=== PATIENT | male | born 1960 | race Caucasian/White ===

== ENCOUNTER → 2018-12-29 | Day surgery (SDC) | payer OTHER ==
--- NOTE | 2018-12-10 10:37 | Diagnostic Imaging Report ---
EXAMINATION: CHEST 2 VIEWS INDICATION: Pre-admit. COMPARISON: None FINDINGS: TUBES and LINES: None. LUNGS: Lungs are well inflated. Patchy opacities in the left lower lung. No evidence of pulmonary edema. PLEURA: There is a moderate left pleural effusion. No evidence of pneumothorax. HEART AND MEDIASTINUM: The cardiomediastinal silhouette is unremarkable. BONES AND SOFT TISSUES: No acute osseous abnormality. UPPER ABDOMEN: No free air under the diaphragm. IMPRESSION: Moderate left pleural effusion with patchy left lower lung opacities, likely atelectasis. Signed by: Dr. Traci Vernon MD on 12/10/2018 10:34 AM
[~2018-12-29] MED LIST: BUPIVACAINE 0.5%/EPI 30 ML SDV INJ ONE; CEFAZOLIN SOD 2 GM/D5W 50ML 50 ML IV ONE; DEXAMETHASONE SOD PHOS INJ 4 MG/ML VIAL ONE; FENTANYL CITRATE/PF 100MCG/2 ML INJ ONE; GLUCOSAMINE1000 MG PO; KETOROLAC TROMETHAMINE 30 MG/ML VIAL ONE; LIDOCAINE HCL 2% LOCAL INJ 5 ML SDV VIAL INJ ONE; MIDAZOLAM HCL 2 MG/2 ML VIAL ONE; MULTI-VITAMIN1 EACH PO; ONDANSETRON HCL INJ 2MG/ML 2ML 2 MG/ML VIAL ONE; POTASSIUM PO; PROPOFOL IV EMULSION 10 MG/ML 20 ML VIAL ONE; SEVOFLURANE INHAL SOLN 250 ML PEN BTL ONE; TYLENOL ARTHRITIS PO; VIT C PO
--- OUTSIDE RECORDS SUMMARY | 2018-12-29 05:34 | XMS REPORT | Encounter Summary ---
Author Organization Unknown Address [address] [place] [address] Phone [phone] Care Team Providers Care Adjuster Arbitrator Name Role Phone Dr. Dayne Guerra 3 [phone] Morgan Ocasio MD 130 [phone] Reason for Visit swelling/edema Instructions 1. Edema US, echocardiogram - PLEASE CALL PATIENT TO SCHEDULE APPT. CMP, serum or plasma TSH, serum or plasma CBC w/ auto diff Lasix 20 mg tablet 2. Influenza vaccination declined 3. Body mass index 25-29 - overweight learning about healthy weight Discussion Note: None recorded. Plan of Care Reminders Provider Appointments Return to Office on or around 12/27/2018 Dayne Finney MD Lab CMP, Serum or Plasma 12/13/2018 [facility] TSH, Serum or Plasma 12/13/2018 [facility] CBC W/ Auto Diff 12/13/2018 [facility] Referral None recorded. Procedures None recorded. Surgeries None recorded. Imaging US, Echocardiogram 12/13/2018 [facility] Medications Name Start Date Glucosamine QD Lasix 20 mg tablet Take 1 tablet every other day by oral route as directed for 30 days. multivitamin QD naproxen 500 mg tablet Take 1 tablet twice a day by oral route. potassium QD Vitamin B12 QD Vitamin C QD Medications Administered None recorded. Vitals Height Weight BMI Blood Pressure 5 ft 10 in 196 lbs 28.1 kg/m2 120/70 mm[Hg] Lab Results None recorded. Allergies Code Code System Name Reaction Severity Status Onset NKDA Problems Name Status Onset Date Source Tobacco User Active 12/02/2017 Elevated Blood-pressure Reading without Diagnosis of Hypertension Active 12/02/2017 Procedures Date Name Performed by 12/13/2018 US, Echocardiogram [facility] [address] [place] [address] (Work Place) Vaccine List Vaccine Type Tdap 09/14/2013 Social History Smoking Status Smoker, Current Status Unknown (1 PPD) Past Encounters 12/13/2018 Edema; Influenza Vaccination Declined; Body Mass Index 25-29 - Overweight Dayne Finney MD: [address] [place] [address], Ph. History of Present Illness Note:Complaining of swelling in hands and feet on and off since a few months ago, but worse since 1 week ago. Denies sob, chest pain, lightheadedness. EKG done at the hospital 3 days ago was wnl (preoperative evaluation for a knee surgery). Review of Systems Comprehensive General Adult ROS Reported By: Patient Constitutional: Constitutional: no fever Eyes: Eyes: no vision change Cardiovascular: Cardiovascular: no chest pain, no palpitations, no lightheadedness Respiratory: Respiratory: no cough, no wheezing, no shortness of breath Gastrointestinal: Gastrointestinal: no abdominal pain, no nausea, no vomiting, no constipation, no diarrhea Musculoskeletal: Musculoskeletal: swelling in the extremities Neurologic: Neurologic: no loss of consciousness, no headaches Physical Exam General Adult Exam (male) Reported By: Patient Constitutional: General Appearance: healthy-appearing, overweight. Level of Distress: NAD. Ambulation: ambulating normally Psychiatric: Insight: good judgement. Mental Status: active and alert, normal mood, normal affect. Orientation: to time, to place, to person. Memory: recent memory normal, remote memory normal Eyes: Lids and Conjunctivae: non-injected, no discharge ENMT: Oropharynx: moist mucous membranes Neck: Neck: supple, trachea midline. Thyroid: no enlargement, non-tender Lungs: Auscultation: breath sounds normal Cardiovascular: Heart Auscultation: RRR, normal S1, normal S2, no murmurs. Neck vessels: no carotid bruits. Pulses including femoral / pedal: normal throughout Abdomen: Inspection and Palpation: soft, non-distended, no tenderness, no guarding Musculoskeletal:: Motor Strength and Tone: normal, normal tone. Joints, Bones, and Muscles: normal movement of all extremities. Extremities: edema Neurologic: Gait and Station: normal gait
--- OUTSIDE RECORDS SUMMARY | 2018-12-29 05:34 | XMS REPORT | Encounter Summary ---
Author Organization Unknown Address [address] [place] [address] Phone [phone] Care Team Providers Care Slat Basket Top Maker Name Role Phone Dr. Dayne Guerra 3 [phone] Morgan Ocasio MD 130 [phone] Reason for Visit lab follow-up Instructions 1. Pleural effusion 2. Anemia iron + TIBC + ferritin, serum fecal occult blood, stool 3. Leukocytosis 4. Tear of meniscus of knee 5. Thrombocytosis 6. Hypothyroidism levothyroxine 25 mcg tablet 7. Screening for disorder hepatitis C virus RNA, quant, PCR, serum or plasma 8. Body mass index 25-29 - overweight learning about healthy weight 9. Nicotine dependence stopping smoking: care instructions Discussion Note: None recorded. Plan of Care Reminders Provider Appointments Return to Office on or around 12/30/2018 Dayne Finney MD Lab Hepatitis C Virus RNA, Quant, PCR, Serum or Plasma 12/16/2018 [facility] Iron + TIBC + Ferritin, Serum 12/16/2018 [facility] Fecal Occult Blood, Stool 12/16/2018 [facility] Referral None recorded. Procedures None recorded. Surgeries None recorded. Imaging None recorded. Medications Name Start Date furosemide 20 mg tablet Take 1 tablet every other day by oral route as directed for 30 days. Glucosamine QD levothyroxine 25 mcg tablet Take 1 tablet every day by oral route as directed for 30 days. multivitamin QD potassium QD Tylenol Arthritis Pain 2 tabs twice a day Vitamin B12 QD Vitamin C QD Medications Administered None recorded. Vitals Height Weight BMI Blood Pressure 5 ft 10 in 198 lbs 28.4 kg/m2 136/74 mm[Hg] Lab Results Date Name Specimen Result Interpretation Description Value Range Status Address 12/13/2018 CBC W/ Auto Diff High Wbc 12.11 x10*3/L 4.23-9.07 x10*3/L Final [facility]: [address] [place] [address] Low Rbc 4.29 10*12/L 4.63-6.08 10*12/L Final [facility]: [address] [place] Low Hemoglobin 11.50 g/dL 13.70-17.50 g/dL Final [facility]: [address] [place] Low Hematocrit 38.0 % 40.1-51.0 % Final [facility]: [address] [place] Mcv 88.6 fL 80.0-100.0 fL Final [facility]: [address] [place] Mch 26.8 pg 25.7-32.2 pg Final [facility]: [address] [place] Low Mchc 30.3 g/dL 32.3-36.5 g/dL Final [facility]: [address] [facility] RDW-SD 46.3 fL 35.1-43.9 fL Final [facility]: [address] [facility] Platelet Count 470.0 k/uL 163.0-337.0 k/uL Final [facility]: [address] [place] Mpv 10.0 fL 7.5-11.5 fL Final [facility]: [address] [place] High Neut% 80.4 % 34.0-67.9 % Final [facility]: [address] [place] Low Lymph% 9.9 % 21.8-53.1 % Final [facility]: [address] [place] Mon% 8.6 % 5.3-12.2 % Final [facility]: [address] [place] Eos% 0.9 % 0.8-7.0 % Final [facility]: [address] [place] Baso% 0.2 % 0.2-1.2 % Final [facility]: [address] [place] High Neut# 9.7 x10*3/L 1.8-5.4 x10*3/L Final [facility]: [address] [place] Low Lymph# 1.2 x10*3/L 1.3-3.6 x10*3/L Final [facility]: [address] [place] High Mon# 1.0 x10*3/L 0.3-0.8 x10*3/L Final [facility]: [address], [place] Eos# 0.11 x10*3/L 0.04-0.54 x10*3/L Final [facility]: [address] [place] Baso# 0.03 x10*3/L 0.01-0.08 x10*3/L Final [facility]: [address] [place] 12/13/2018 CMP, Serum or Plasma Alt 15 U/L 0-55 U/L Final [facility]: [address] Ast 11 U/L 5-34 U/L Final [facility]: [address] [place] [address] Bun 15.5 mg/dL 8.4-25.7 mg/dL Final [facility]: [address] Alk Phos 76 unit/L 40-150 unit/L Final [facility]: [address] Glucose 98 mg/dL 70-99 mg/dL Final [facility]: [address] [place] [address] Low Albumin 3.0 g/dL 3.5-5.0 g/dL Final [facility]: [address] [place] [address] Creatinine 0.75 mg/dL 0.72-1.25 mg/dL Final [facility]: [address] [place] [address] eGFR Non- >60 mL/min/1.73m2 Final [facility]: [address] Total Bilirubin 0.3 mg/dL 0.2-1.2 mg/dL Final [facility]: [address] eGFR - >60 mL/min/1.73m2 Final [facility]: [address] [facility] Sodium 142 mEq/L 136-145 mEq/L Final [facility]: [address] Potassium 4.7 mEq/L 3.5-5.1 mEq/L Final [facility]: [address] Chloride 105 mmol/L 98-107 mmol/L Final [facility]: [address] [place] [address], [place] Total Protein 7.5 g/dL 6.4-8.3 g/dL Final [facility]: [address] [place] [address], [place] Calcium 9.3 mg/dL 8.4-10.2 mg/dL Final [facility]: [address] [place] [address], [place] Co2 27.5 mmol/L 22.0-29.0 mmol/L Final [facility]: [address] Anion Gap 10 calc Final [facility]: [address] [place] [address], [place] 12/13/2018 TSH, Serum or Plasma High Tsh 6.435 uIU/mL 0.350-4.940 uIU/mL Final [facility]: [address] Allergies Code Code System Name Reaction Severity Status Onset NKDA Problems Name Status Onset Date Source Tobacco User Active 12/02/2017 Elevated Blood-pressure Reading without Diagnosis of Hypertension Active 12/02/2017 Procedures Date Name Performed by 12/13/2018 US, Echocardiogram [facility] [place] [address] [place] [address] (Work Place) Vaccine List Vaccine Type Tdap 09/14/2013 Social History Smoking Status Heavy Tobacco Smoker (1 PPD) Past Encounters 12/16/2018 Pleural Effusion; Anemia; Leukocytosis; Tear of Meniscus of Knee; Thrombocytosis; Hypothyroidism; Screening for Disorder; Body Mass Index 25-29 - Overweight; Nicotine Dependence Dayne Finney MD: [address] [place] [address], Ph. 12/13/2018 Edema; Influenza Vaccination Declined; Body Mass Index 25-29 - Overweight Dayne Finney MD: [address] [place] [address], Ph. History of Present Illness Note:Coming to discuss labs, CXR results and clearance for knee surgery. Review of Systems Comprehensive General Adult ROS [...] midline. Thyroid: no enlargement, non-tender Lungs: Auscultation: decreased breath sounds Cardiovascular: Heart Auscultation: RRR, normal S1, normal S2, no murmurs Musculoskeletal:: Motor Strength and Tone: normal, normal tone. Extremities: edema Neurologic: Gait and Station: normal gait
--- OUTSIDE RECORDS SUMMARY | 2018-12-29 05:34 | XMS REPORT | Encounter Summary ---
Author Organization Unknown Address [address] [place] [address] Phone [phone] Care Team Providers Care Arboriculture Instructor Name Role Phone Dr. Dayne Guerra 3 [phone] Morgan Ocasio MD 130 [phone] Reason for Visit swelling/edema Instructions 1. Edema [...] MD Lab CMP, Serum or Plasma 12/13/2018 [facility] TSH, Serum or Plasma 12/13/2018 [facility] CBC W/ Auto Diff 12/13/2018 [facility] Referral None recorded. Procedures None recorded. Surgeries None recorded. Imaging US, Echocardiogram 12/13/2018 [facility] Diagnos[facility] Imaging [facility] Medications Name Start Date Glucosamine QD Lasix [...] Date Name Performed by 12/13/2018 US, Echocardiogram [facility] Diagn[facility] Imaging [facility] [address] [place] [address] (Work Place) Vaccine List Vaccine Type Tdap 09/14/2013 Social History Smoking Status Smoker, Current Status Unknown (1 PPD) Past Encounters 12/13/2018 Edema; Influenza Vaccination Declined; Body Mass Index 25-29 - Overweight Dayne Finney MD: [address] [place] [address], Ph. History of Present Illness Note:Complaining of swelling in hands and feet on and off since a few months ago, but worse since 1 week ago. Denies sob, chest pain, lightheadedness. EKG done at the hospital 3 days ago was wnl (preoperative evaluation for a knee surgery). Review of Systems None recorded. Physical Exam General Adult Exam (male) Reported [...]
--- OUTSIDE RECORDS SUMMARY | 2018-12-29 05:34 | XMS REPORT ---
Author Author [facility] Address Unknown Phone Unavailable Care Team Providers Care Grounding Engineer Name Role Phone ARAM SORENSEN Unavailable Unavailable Problems This patient has no known problems. Allergies, Adverse Reactions, Alerts This patient has no known allergies or adverse reactions. Medications This patient has no known medications. Results Test Description Test Time Test Comments Text Results Atomic Results Result Comments CHEST 2 VIEWS 2018-12-10 10:27:00 [place] [id number] [place] [id number] Patient Name: TRAVIS MARTINEZ MR #: [id number] : 1960 Age/Sex: 58/M Req #: [id number] Adm Physician: Ordered by: ARAM SORENSEN MD Report #: [id number] Location: OR Room/Bed: Procedure: [id number] DX/CHEST 2 VIEWS Exam Date: 12/10/18 Exam Time: 0940 REPORT STATUS: Signed EXAMINATION: CHEST 2 VIEWS INDICATION: Pre-admit. COMPARISON: None FINDINGS: TUBES and LINES: None. LUNGS: Lungs are well inflated. Patchy opacities in the left lower lung. No evidence of pulmonary edema. PLEURA: There is a moderate left pleural effusion. No evidence of pneumothorax. HEART AND MEDIASTINUM: The cardiomediastinal silhouette is unremarkable. BONES AND SOFT TISSUES: No acute osseous abnormality. UPPER ABDOMEN: No free air under the diaphragm. IMPRESSION: Moderate left pleural effusion with patchy left lower lung opacities, likely atelectasis. Signed by: Dr. Greta Wilson MD on 12/10/2018 10:34 AM Dictated By: GRETA WILSON MD 1034 Transcribed By: JAQUELINE on 12/10/18 1034 COPY TO: ARAM SORENSEN MD
--- OUTSIDE RECORDS SUMMARY | 2018-12-29 05:34 | XMS REPORT ---
Author Organization Unknown Address [address] [place] [address] Phone [phone] Care Team Providers Care Marine Insurance Claim Examiner Name Role Phone Dayne Benoit Unavailable Unavailable Allergies Code Code System Name Reaction Severity Status Onset NKDA Medications Name Status Start Date Stop Date amoxicillin 875 mg-potassium clavulanate 125 mg tablet Completed 12/01/2017 Problems Name Status Onset Date Source Tobacco User Active 12/02/2017 Elevated Blood-pressure Reading without Diagnosis of Hypertension Active 12/02/2017 Procedures Notes: Patient indicated no previous surgeries on (12/01/2017) Lab Results None recorded. Past Encounters 12/01/2017 Elevated Blood-pressure Reading without Diagnosis of Hypertension; Tobacco User Carley Tran MD: [address] [place] [address], Ph. Social History Smoking Status Smoker, Current Status Unknown (1 PPD) Vaccine List Vaccine Type Tdap 09/14/2013 Plan of Care Reminders Provider Appointments None recorded. Lab None recorded. Referral None recorded. Procedures None recorded. Surgeries None recorded. Imaging None recorded. Vitals Height Weight BMI Blood Pressure 5 ft 10 in 219 lbs 31.4 kg/m2 118/78 mm[Hg]
[2018-12-29 09:30] VITALS: BP 132/77
--- NOTE | 2018-12-30 18:47 | Operative Report ---
DATE OF PROCEDURE: 12/29/2018 SURGEON: Morgan Ocasio MD PREOPERATIVE DIAGNOSES: Right knee medial meniscus tear, right knee degenerative joint disease. POSTOPERATIVE DIAGNOSES: Right knee medial meniscus tear, right knee lateral meniscus tear, right knee degenerative joint disease, right knee multiple intra-articular loose bodies, right knee symptomatic medial shelf plica. OPERATION/PROCEDURE PERFORMED: The patient underwent a right knee exam under anesthesia, right knee arthroscopy, right knee partial medial meniscectomy, right knee partial lateral meniscectomy, right knee removal of multiple intra-articular loose bodies, right knee chondroplasty of the patella, the trochlea, the medial femoral condyle, the medial tibial plateau, the lateral femoral condyle, and lateral tibial plateau, right knee resection of a medial shelf plica. INFANT CAREGIVER: Melissa Zurita. ANESTHESIA: General endotracheal intubation anesthesia. IV FLUIDS: Per the anesthesia record. BRIEF DISCUSSION OF THE PATIENT'S OPERATIVE PROCEDURE: Mr. Martinez was taken to the operating room, placed in the supine position on the operating table. Following induction of general anesthesia as well as endotracheal intubation, the patient's right lower extremity was examined under anesthesia. He was found to have a mild effusion within the knee joint, but otherwise ligamentously stable knee. The patient's lower extremity was prepped and draped in standard surgical fashion. A 2-port technique was used to provide this patient arthroscopic evaluation of the knee joint. Examination of suprapatellar pouch, medial and lateral gutters found no evidence of loose bodies. There was, however, evidence of chondromalacia of the patella and trochlear surfaces. The scope was advanced into the medial compartment. Examination of the medial compartment demonstrated a torn medial meniscus. There was also chondromalacia of the articulating surfaces. A combination of biting forceps and motorized shaver was used to resect the torn portion of the meniscus. Chondroplasties of the medial femoral condyle and medial tibial plateau were performed at this time. The scope was then advanced into the intercondylar notch and the anterior cruciate ligament was identified and found to be intact. Scope was then advanced into the lateral compartment and a torn posterior horn of the lateral meniscus was encountered. There was also chondromalacia of the articulating surfaces. A combination of biting forceps and motorized shaver was used to resect the torn portion of the meniscus. Chondroplasties of the lateral femoral condyle and lateral tibial plateau were performed at this time. The scope was placed within the knee joint atraumatically. Examination of the patellofemoral joint demonstrated chondromalacia of the articulating surfaces. There were multiple intra-articular loose bodies floating within the suprapatellar pouch. These were removed using a shaver. The scope was advanced into the medial compartment and examination of the medial compartment demonstrated a torn medial meniscus. There was also chondromalacia of the articulating surfaces. There was a large cartilaginous intra-articular loose body in the medial compartment. This was removed using a grasper. A combination of biting forceps and a motorized shaver was used to resect the torn portion of meniscus. Chondroplasties of the medial femoral condyle and medial tibial plateau were performed at this time. Scope was then advanced into the intercondylar notch and the anterior cruciate ligament was identified and found to be intact. The scope was advanced into the lateral compartment. There was a tear of the posterior horn of the lateral meniscus. There was also chondromalacia of the articulating surfaces. A shaver was used to resect the torn portion of the meniscus. Chondroplasties of the lateral femoral condyle and lateral tibial plateau were performed at this time. Scope was then placed in the suprapatellar pouch and a medial shelf plica was found to be interdigitating between the patella and the trochlea. The plica was resected. There was also chondromalacia of the articulating surfaces. Chondroplasties of the patella and trochlea were performed at this time. The knee was inflated with sterile normal saline. The portal sites were closed using 4-0 nylon suture. The portal sites as well as the knee itself were injected with 0.5% Marcaine with epinephrine. Sterile dressings were applied. The patient was then awakened and taken to the Postanesthesia Care Unit in stable condition. MD AUSTIN Hedrick/LEONA /[id number]
== END | disposition home or self-care (01) ==
LOC: OR 05:30
PROVIDERS: ATTEND Specialist
DX: S83.281A Other tear of lateral meniscus, current injury, right knee, initial encounter (principal); S83.241A Other tear of medial meniscus, current injury, right knee, initial encounter; M17.11 Unilateral primary osteoarthritis, right knee; M67.51 Plica syndrome, right knee; Z01.810 Encounter for preprocedural cardiovascular examination; Z01.811 Encounter for preprocedural respiratory examination
CPT/HCPCS: 29874; 29881; 71046; 93005; J0690; J1100; J1885; J2001; J2250; J2405; J2704

== ENCOUNTER → 2018-12-31 | Outpatient (CLI) | payer OTHER ==
[~2018-12-31] MED LIST changes: -BUPIVACAINE 0.5%/EPI 30 ML SDV INJ ONE; -CEFAZOLIN SOD 2 GM/D5W 50ML 50 ML IV ONE; -DEXAMETHASONE SOD PHOS INJ 4 MG/ML VIAL ONE; -FENTANYL CITRATE/PF 100MCG/2 ML INJ ONE; -KETOROLAC TROMETHAMINE 30 MG/ML VIAL ONE; -LIDOCAINE HCL 2% LOCAL INJ 5 ML SDV VIAL INJ ONE; -MIDAZOLAM HCL 2 MG/2 ML VIAL ONE; -ONDANSETRON HCL INJ 2MG/ML 2ML 2 MG/ML VIAL ONE; -PROPOFOL IV EMULSION 10 MG/ML 20 ML VIAL ONE; -SEVOFLURANE INHAL SOLN 250 ML PEN BTL ONE
--- NOTE | 2018-12-31 14:16 | Diagnostic Imaging Report ---
Examination: Single AP view of the chest. COMPARISON: Chest radiograph 12/10/2018 INDICATION: Status post left thoracentesis DISCUSSION: See impression IMPRESSION: Interval left thoracentesis with interval evacuation of the majority of the large left pleural effusion. Small residual effusion persists. No pneumothorax. Right lung remains clear. Stable findings of COPD. Healed left-sided rib fracture deformities. Signed by: Dr. Anmol Khoury M.D. on 12/31/2018 2:13 PM
--- NOTE | 2018-12-31 14:35 | Diagnostic Imaging Report ---
Date and Time: 12/31/2018 Procedure: Ultrasound-guided left thoracentesis paper wrapping machine operator: Dr. Khoury Pre-operative diagnosis: Left pleural effusion Post-operative diagnosis: Left pleural effusion Conscious Sedation: None The patient's heart rate and pulse oximetry were continuously monitored by the interventional radiology nurse. Blood pressure was monitored at 5 minute intervals. Additional Medications: Lidocaine 1% for local anesthesia Fluoroscopy time: None Estimated blood loss: Minimal Blood products administered: None Specimens: 1600 cc straw-colored fluid submitted to the laboratory. Implants: None Condition at completion: Stable Disposition: Discharged home Indications: No immediate DISCUSSION: Informed consent was obtained and documented in the medical record after discussion of risks and benefits. The patient was placed in the sitting position on the sonographic table. Preliminary sonographic evaluation of the left posterior chest wall confirmed a moderate pleural effusion. A suitable percutaneous approach was identified and the overlying skin was prepped and draped in the standard sterile fashion. 1% lidocaine was infiltrated into the skin and subcutaneous tissues for local anesthesia. Then under continuous sonographic guidance, a 5 Irish Yueh needle catheter was advanced into the pleural space with return of straw-colored fluid. The catheter was advanced off the needle and connected to vacuum bottle with subsequent evacuation of 1600 cc straw-colored fluid. The catheter was removed and a sterile, occlusive dressing was applied. The patient tolerated the procedure well without immediate complication. FINDINGS: Moderate left pleural effusion. IMPRESSION: Successful ultrasound-guided left thoracentesis with evacuation of 1600 cc straw-colored fluid. Specimen was submitted for laboratory analysis as requested by the referring clinical team. Signed by: Dr. Anmol Khoury M.D. on 12/31/2018 2:31 PM
[2018-12-31 16:54] LABS: BODY FLUID APPEARANCE CLOUDY; BODY FLUID COLOR YELLOW; BODY FLUID TYPE PLEURAL
[2018-12-31 16:56] LABS: RBC,BODY FLUID 14 cells/uL; WBC,BODY FLUID 935 cells/uL
[2018-12-31 19:35] LABS: EOSINOPHILS,BODY FLUID 5 %; LYMPHOCYTES,BODY FLUID 28 %; MONO/MACROPHG,BODY FLUID 9 %; NEUTROPHILS,BODY FLUID 58 %
== END ==
LOC: US 12:15
PROVIDERS: ATTEND Internal Medicine Critical Care Medicine
DX: J90 Pleural effusion, not elsewhere classified (principal); J98.11 Atelectasis
CPT/HCPCS: 32555; 36415; 71045; 83615; 84157; 87070; 87205; 88112; 88305; 89051

== ENCOUNTER → 2019-08-24 | Day surgery (SDC) | payer OTHER ==
[~2019-08-24] MED LIST changes: +ACETAMINOPHEN 1000 MG/100 ML IV ONE; +ALBUTEROL SULF 0.083% NEB SOLN 3 ML NEB ONE; +ALBUTEROL SULFATE HFA 8GM INHALATION AEROSOL INH ONE; +BUPIVACAINE 0.5%/EPI 30 ML SDV INJ ONE; +CEFAZOLIN SOD 1 GM/NS 50ML 100 ML IV ONE; +DEXAMETHASONE SOD PHOS INJ 4 MG/ML VIAL ONE; +EPINEPHRINE 1 MG/ML 30ML VIAL ONE; +FENTANYL CITRATE/PF 100MCG/2 ML INJ ONE; +GLYCOPYRROLATE INJ 0.2 MG/ML VIAL ONE; +LEVOTHYROXINE50 MCG PO; +LIDOCAINE HCL 2% LOCAL INJ 5 ML SDV VIAL INJ ONE; +MIDAZOLAM HCL 2 MG/2 ML VIAL ONE; +NAPROXEN250 MG PO; +NEOSTIGMINE 1 MG/ML 10ML VIAL ONE; +ONDANSETRON HCL INJ 2MG/ML 2ML 2 MG/ML VIAL ONE; +PROPOFOL IV EMULSION 10 MG/ML 20 ML VIAL ONE; +ROCURONIUM BROMIDE 10 MG/ML 5ML VIAL ONE; +SEVOFLURANE INHAL SOLN 250 ML PEN BTL ONE
[2019-08-24 12:05] VITALS: BP 108/78
--- NOTE | 2019-08-26 17:42 | Operative Report ---
DATE OF PROCEDURE: 08/24/2019 SURGEON: Morgan Ocasio MD PREOPERATIVE DIAGNOSIS: Left shoulder rotator cuff tear. POSTOPERATIVE DIAGNOSES: Left shoulder rotator cuff tear, left shoulder synovitis. OPERATIONS AND PROCEDURES PERFORMED: The patient underwent left shoulder examination under anesthesia, left shoulder arthroscopy, left shoulder arthroscopic debridement of synovitis, left shoulder arthroscopic rotator cuff reconstruction and left shoulder arthroscopic subacromial decompression and acromioplasty. SIGNAL MECHANIC: GREGOR Blanton. ANESTHESIA: General endotracheal intubation anesthesia. IV FLUIDS: Per the anesthesia record. BRIEF DESCRIPTION OF THE PATIENT'S OPERATIVE PROCEDURE: Mr. Martinez was taken to the operating room and placed in the supine position on the operating table. Following induction of general anesthesia as well as endotracheal intubation, the patient's left upper extremity was examined under anesthesia. He was found to have full passive range of motion of the shoulder joint. There was no evidence of instability. The patient's shoulder was prepped and draped in standard surgical fashion. Standard posterolateral and anterior port were created without difficulty. The scope was placed within the shoulder joint atraumatically. Examination of the glenohumeral articulation demonstrated no significant evidence of chondromalacia. There were no loose bodies in the joint. The long head of the biceps was found to be contained within the shoulder joint and in good condition. A probe was placed in the shoulder joint, the labrum was found to be intact. Examination of the rotator cuff tissue demonstrated a large full-thickness rotator cuff tear. The rotator cuff injury was debrided arthroscopically. The insertion site was also debrided to a bleeding bony bed. Synovitis was debrided at this time. The scope was then placed in subacromial space and significant bursal inflammation was encountered. A lateral portal was created through an outside-in technique. A bursectomy was performed. The coracoacromial ligament was also resected at this time. The rotator cuff tear was easily identified. The rotator cuff tendon was further debrided to a healthy tissue. The insertion site was also further debrided to a bleeding bony bed. An accessory anterolateral portal was created without difficulty. A triple-loaded suture anchor was inserted into the greater tuberosity of the humerus. The suture arms from that anchor were woven through the rotator cuff tissue and advanced the rotator cuff tissue into its normal insertion site. This resulted in complete reapproximation of the rotator cuff tissue. An aggressive acromioplasty was then performed. The shoulder was placed through range of motion, there was no impingement. The shoulder was deflated with sterile normal saline. The portal sites were closed. The incisions were closed. Sterile dressings were applied. The patient was provided a shoulder immobilizer, awakened, and taken to the postanesthesia care unit in stable condition. Melissa Zurita acted as a preschool teacher's assistant for this case and was necessary for the prepping and draping of the patient as well as positioning of the arm and the passage of suture that allowed this case to be successful. MD AUSTIN Hedrick/LEONA /[id number]
== END | disposition home or self-care (01) ==
LOC: OR 06:02
PROVIDERS: ATTEND Specialist
DX: M17.11 Unilateral primary osteoarthritis, right knee (principal); S83.221A Peripheral tear of medial meniscus, current injury, right knee, initial encounter; Z48.89 Encounter for other specified surgical aftercare; M75.122 Complete rotator cuff tear or rupture of left shoulder, not specified as traumatic; Z72.0 Tobacco use; E03.9 Hypothyroidism, unspecified; J90 Pleural effusion, not elsewhere classified; M65.812 Other synovitis and tenosynovitis, left shoulder; Z01.810 Encounter for preprocedural cardiovascular examination
CPT/HCPCS: 29826; 29827; 93005; C1713; J0131; J0690; J1100; J2001; J2250; J2405; J2704; J2710; J3010

== ENCOUNTER → 2019-10-24 | Outpatient (CLI) | payer OTHER ==
[~2019-10-24] MED LIST changes: -ACETAMINOPHEN 1000 MG/100 ML IV ONE; -ALBUTEROL SULF 0.083% NEB SOLN 3 ML NEB ONE; -ALBUTEROL SULFATE HFA 8GM INHALATION AEROSOL INH ONE; -BUPIVACAINE 0.5%/EPI 30 ML SDV INJ ONE; -CEFAZOLIN SOD 1 GM/NS 50ML 100 ML IV ONE; -DEXAMETHASONE SOD PHOS INJ 4 MG/ML VIAL ONE; -EPINEPHRINE 1 MG/ML 30ML VIAL ONE; -FENTANYL CITRATE/PF 100MCG/2 ML INJ ONE; -GLYCOPYRROLATE INJ 0.2 MG/ML VIAL ONE; -LIDOCAINE HCL 2% LOCAL INJ 5 ML SDV VIAL INJ ONE; -MIDAZOLAM HCL 2 MG/2 ML VIAL ONE; -NEOSTIGMINE 1 MG/ML 10ML VIAL ONE; -ONDANSETRON HCL INJ 2MG/ML 2ML 2 MG/ML VIAL ONE; -PROPOFOL IV EMULSION 10 MG/ML 20 ML VIAL ONE; -ROCURONIUM BROMIDE 10 MG/ML 5ML VIAL ONE; -SEVOFLURANE INHAL SOLN 250 ML PEN BTL ONE
[2019-10-24 08:41] LABS: HEMATOCRIT 48.7 % (38.2-49.6); HEMOGLOBIN 15.8 g/dL (14.0-18.0)
[2019-10-24 08:47] LABS: INR 0.88; PROTHROMBIN TIME 12.5 seconds (11.9-14.5)
[2019-10-24 08:48] LABS: PARTIAL THROMBOPLASTIN TIME 32.2 seconds (23.8-35.5)
--- NOTE | 2019-10-24 09:53 | Diagnostic Imaging Report ---
Exam: Chest one view Comparison: December 31, 2018 Clinical history: Status post thoracentesis Findings: Mild residual subpulmonic left pleural effusion is noted. There is no evidence of pneumothorax. The cardiac size is within normal limits. The regional osseous structures are unremarkable. Signed by: Dr. Mario Lance MD on 10/24/2019 9:51 AM
--- NOTE | 2019-10-24 10:15 | Diagnostic Imaging Report ---
Exam: Ultrasound guided thoracentesis Clinical History: Pleural effusion Consent: Benefits and risks were explained to the patient who gave consent to the procedure. Complication: None immediate Procedure: The patient was placed in uprightposition. The left posterior chest was prepped and draped in usual sterile fashion. 1% lidocaine was used as local anesthetic. Under ultrasound guidance, a thoracentesis catheter was inserted into the pleural cavity. Approximately 1500 cc of light brown fluid was aspirated. The catheter was removed. The specimen was sent to the laboratory for further analysis. The patient tolerated the procedure well without any adverse reaction. A STAT chest x-ray was ordered. The patient left the department in stable condition. Impression: Ultrasound guided left thoracentesis. Signed by: Dr. Mario Lance MD on 10/24/2019 10:13 AM
[2019-10-24 10:33] LABS: BODY FLUID APPEARANCE CLOUDY; BODY FLUID COLOR STRAW; BODY FLUID TYPE PLEURAL
[2019-10-24 10:34] LABS: RBC,BODY FLUID 660 cells/uL; WBC,BODY FLUID 330 cells/uL
[2019-10-24 11:25] LABS: NEUTROPHILS,BODY FLUID 28 %
[2019-10-24 11:26] LABS: MONO/MACROPHG,BODY FLUID 8 %
[2019-10-24 11:27] LABS: LYMPHOCYTES,BODY FLUID 63 %
== END ==
LOC: US 08:17
PROVIDERS: ATTEND Internal Medicine Critical Care Medicine
DX: J98.11 Atelectasis (principal)
CPT/HCPCS: 32555; 36415; 71045; 83615; 84157; 84478; 85014; 85018; 85049; 85610; 85730; 88112; 88305; 89051

== ENCOUNTER 2019-11-08 07:00 | Outpatient (RCR) | payer OTHER | END 2019-11-12 | LOC: PT 07:00 | PROVIDERS: ATTEND Specialist | DX: M75.102 Unspecified rotator cuff tear or rupture of left shoulder, not specified as traumatic (principal) ==

== ENCOUNTER 2019-11-15 08:14 | Outpatient (RCR) | payer OTHER | END 2019-12-13 | LOC: PT 08:14 | PROVIDERS: ATTEND Specialist | DX: M75.102 Unspecified rotator cuff tear or rupture of left shoulder, not specified as traumatic (principal) | CPT/HCPCS: 97139 ==

== ENCOUNTER → 2020-06-13 | Outpatient (CLI) | payer OTHER ==
--- NOTE | 2020-06-13 16:54 | Diagnostic Imaging Report ---
EXAMINATION: CHEST 2 VIEWS INDICATION: Pleural effusion COMPARISON: Chest radiograph 10/24/2019 FINDINGS: LINES/TUBES:None LUNGS:The lungs are moderately inflated. There is left basilar opacity silhouetting the left macarena diaphragm. PLEURA:Small left pleural effusion. No pneumothorax. MEDIASTINUM:The cardiomediastinal silhouette appears normal in size and shape. Atherosclerotic calcifications of the thoracic aorta. BONES/SOFT TISSUES:No acute osseous injury. ABDOMEN:No free air under the diaphragm. IMPRESSION: Small left pleural effusion. Left basilar opacities, most likely subsegmental atelectasis. Signed by: Geno Healy MD on 06/13/2020 4:50 PM
== END ==
LOC: RAD 16:19
PROVIDERS: ATTEND Internal Medicine Critical Care Medicine
DX: J90 Pleural effusion, not elsewhere classified (principal)
CPT/HCPCS: 71046

== ENCOUNTER 2021-02-01 11:00 | Inpatient (IN) | payer OTHER ==
[~2021-02-01] VITALS: Ht 180.3 cm; Wt 92.1 kg
[2021-02-01 12:16] LABS: BASOPHILS # (AUTO) 0.1 (0.0-0.1); BASOPHILS % 0.6 % (0.0-1.0); EOSINOPHILS # (AUTO) 0.2 (0.0-0.4); EOSINOPHILS % 2.1 % (0.0-6.0); HEMATOCRIT 50.4 % (38.2-49.6); HEMOGLOBIN 16.3 g/dL (14.0-18.0); LYMPHOCYTES # (AUTO) 1.4 (1.0-3.2); LYMPHOCYTES % 16.8 % (18.0-39.1); MEAN CORPUSCULAR HEMOGLOBIN 29.1 pg (28-32); MEAN CORPUSCULAR HGB CONC 32.3 g/dL (31-35); MEAN CORPUSCULAR VOLUME 89.8 fL (81-99); MONOCYTES # (AUTO) 0.7 (0.2-0.8); NEUTROPHILS # (AUTO) 6.1 (2.1-6.9); NEUTROPHILS % 72.1 % (38.7-80.0); PLATELET COUNT 247 x10e3/uL (140-360); RED BLOOD COUNT 5.61 x10e6/uL (4.3-5.7); RED CELL DISTRIBUTION WIDTH 15.1 % (11.7-14.4)
[2021-02-01 12:49] LABS: ALANINE AMINOTRANSFERASE 17 IU/L (0-55); ALBUMIN 3.6 g/dL (3.5-5.0); ALBUMIN/GLOBULIN RATIO 0.9 (0.8-2.0); ALKALINE PHOSPHATASE 83 IU/L (40-150); ANION GAP 12.1 mmol/L (8-16); BLOOD UREA NITROGEN 9 mg/dL (7-26); BUN/CREATININE RATIO 12 (6-25); CALCIUM 8.6 mg/dL (8.4-10.2); CARBON DIOXIDE 27 mmol/L (22-29); CHLORIDE 105 mmol/L (98-107); CREATININE, SERUM 0.78 mg/dL (0.72-1.25); EST GLOMERULAR FILTRATION RATE > 60 ML/MIN (60-); GLUCOSE 95 mg/dL (74-118); POTASSIUM 4.1 mmol/L (3.5-5.1); SODIUM 140 mmol/L (136-145)
[2021-02-01 13:39] LABS: CREATINE KINASE 83 IU/L (30-200)
[2021-02-01] MEDS ORDERED: LIOTHYRONINE SO5 MCG PO (14:08)
[2021-02-01] MEDS ORDERED: levothyroxine PO (14:08)
[2021-02-01] MEDS ORDERED: LIOTHYRONINE S (14:08)
[2021-02-01] MEDS ORDERED: b12 PO (14:10)
[2021-02-01] MEDS ORDERED: [UNRECOGNIZED DRUG - OTHER] IM (14:11)
[2021-02-01] MEDS ORDERED: ASPIRIN 81 MG CHEW TAB PO ONE (14:30)
[2021-02-01] MEDS ORDERED: NICOTINE 21 MG/EA PATCH TOP PRN (15:30)
[2021-02-01] MEDS ORDERED: ACETAMINOPHEN 325 MG TAB PO PRN (15:30)
[2021-02-01] MEDS ORDERED: KETOROLAC TROMETHAMINE 30 MG/ML VIAL IV PRN (15:30)
[2021-02-01] MEDS ORDERED: BENZONATATE 100 MG CAP PO PRN (15:30)
[2021-02-01] MEDS ORDERED: HYDRALAZINE HCL 20 MG/ML VIAL IV PRN (15:30)
[2021-02-01] MEDS ORDERED: ONDANSETRON HCL INJ 2MG/ML 2ML 2 MG/ML VIAL IV PRN (15:30)
[2021-02-01] MEDS ORDERED: ALPRAZOLAM 0.25 MG TAB PO PRN (15:30)
[2021-02-01] MEDS ORDERED: ALBUTEROL/IPRATROPIUM 3 ML NEB NEB PRN (15:30)
[2021-02-01] MEDS: FAMOTIDINE 20 MG TAB PO SCH (16:30)
[2021-02-01 17:08] VITALS: BP 140/76
[2021-02-01 17:20] VITALS: BP 140/76
[2021-02-01 17:35] LABS: INR 0.86; PROTHROMBIN TIME 12.3 seconds (11.9-14.5)
[2021-02-01 17:36] LABS: PARTIAL THROMBOPLASTIN TIME 29.2 seconds (23.8-35.5)
[2021-02-01 17:41] LABS: CREATINE KINASE 72 IU/L (30-200)
[2021-02-01] MEDS: ALBUTEROL/IPRATROPIUM 3 ML NEB NEB SCH (19:10)
[2021-02-01 20:23] VITALS: BP_SYST 137; BP_SYST 154; BP_DIAS 69; BP_DIAS 70
[2021-02-01 21:00] VITALS: BP 154/69
[2021-02-02] MEDS: ALBUTEROL/IPRATROPIUM 3 ML NEB NEB SCH ×3 (00:55→12:20)
[2021-02-02 01:23] VITALS: BP 148/94
[2021-02-02 03:39] LABS: BASOPHILS % 0.5 % (0.0-1.0); EOSINOPHILS # (AUTO) 0.2 (0.0-0.4); EOSINOPHILS % 1.9 % (0.0-6.0); HEMATOCRIT 49.4 % (38.2-49.6); HEMOGLOBIN 15.5 g/dL (14.0-18.0); LYMPHOCYTES # (AUTO) 1.3 (1.0-3.2); LYMPHOCYTES % 16.1 % (18.0-39.1); MEAN CORPUSCULAR HEMOGLOBIN 28.7 pg (28-32); MEAN CORPUSCULAR HGB CONC 31.4 g/dL (31-35); MEAN CORPUSCULAR VOLUME 91.3 fL (81-99); MONOCYTES # (AUTO) 0.6 (0.2-0.8); MONOCYTES % 7.5 % (4.4-11.3); NEUTROPHILS # (AUTO) 5.9 (2.1-6.9); NEUTROPHILS % 73.7 % (38.7-80.0); PLATELET COUNT 217 x10e3/uL (140-360); RED BLOOD COUNT 5.41 x10e6/uL (4.3-5.7); RED CELL DISTRIBUTION WIDTH 15.2 % (11.7-14.4)
[2021-02-02 04:01] LABS: CREATINE KINASE MB 1.8 ng/mL (0-5.0)
[2021-02-02 04:22] LABS: ALANINE AMINOTRANSFERASE 16 IU/L (0-55); ALBUMIN 3.2 g/dL (3.5-5.0); ALKALINE PHOSPHATASE 73 IU/L (40-150); BLOOD UREA NITROGEN 12 mg/dL (7-26); BUN/CREATININE RATIO 16 (6-25); CALCIUM 8.4 mg/dL (8.4-10.2); CARBON DIOXIDE 26 mmol/L (22-29); CHLORIDE 106 mmol/L (98-107); CREATININE, SERUM 0.74 mg/dL (0.72-1.25); EST GLOMERULAR FILTRATION RATE > 60 ML/MIN (60-); GLUCOSE 115 mg/dL (74-118); SODIUM 143 mmol/L (136-145)
[2021-02-02 06:07] VITALS: BP 139/78
[2021-02-02 08:02] VITALS: BP 133/82
[2021-02-02] MEDS: FAMOTIDINE 20 MG TAB PO SCH (08:20)
[2021-02-02] MEDS ORDERED: MULTIVITAMINS/MINERALS TAB PO SCH (09:00)
[2021-02-02] MEDS ORDERED: LIOTHYRONINE SODIUM 5 MCG TAB PO SCH (09:00)
[2021-02-02 09:30] VITALS: BP 133/82
[2021-02-02 12:12] VITALS: BP 115/78
[2021-02-02 17:42] LABS: BODY FLUID APPEARANCE CLOUDY; BODY FLUID COLOR YELLOW
[2021-02-02 17:43] LABS: RBC,BODY FLUID 25 cells/uL
[2021-02-02 17:44] LABS: WBC,BODY FLUID 25 cells/uL
[2021-02-02 17:48] LABS: LYMPHOCYTES,BODY FLUID 44 %; MONO/MACROPHG,BODY FLUID 22 %; NEUTROPHILS,BODY FLUID 34 %
== END 2021-02-02 13:15 | disposition home or self-care (01) | DRG 188 ==
LOC: ER 11:41 → ERHOLD 14:34 → MED/SURG2 16:23
PROVIDERS: ADMIT Internal Medicine; ATTEND Internal Medicine
PROC: 0W9B3ZZ Drainage of Left Pleural Cavity, Percutaneous Approach (ICD-10-PCS; principal; 2021-02-01)
DX: J90 Pleural effusion, not elsewhere classified (principal); E03.9 Hypothyroidism, unspecified; J44.9 Chronic obstructive pulmonary disease, unspecified; R09.02 Hypoxemia; M19.90 Unspecified osteoarthritis, unspecified site; Z20.822 Contact with and (suspected) exposure to COVID-19
CPT/HCPCS: 32555; 36415; 71045; 74470; 80053; 82550; 82553; 83615; 84157; 84484; 85025; 85610; 85730; 89051; 94640; 99284; U0002